=== PATIENT | female | born 1985 | race Two or more races ===

== ENCOUNTER 2016-02-07 09:02 | Emergency (ER) | payer OTHER ==
[2016-02-07 09:16] VITALS: BP 135/62; PULSE 59; RESP 18; TEMP 98; O2SAT 97
--- NOTE | 2016-02-07 09:24 | UCPHY ---
H & P Patient Type: New Chief Complaint Nursing Narrative: c/o UTI S/S since last night with LLQ tenderness- denies trauma HPI/ROS: CHIEF COMPLAINT: Dysuria HISTORY OF PRESENT ILLNESS: this is a healthy 30-year-old female with dysuria, urgency, and frequency that began last night and has persisted into the morning. She has some mild mid line lower abdominal pain. No vaginal discharge. No history of STD. Her last menstrual period was normal in began on January 23. She has not had fever, low-back pain, vomiting, or diarrhea. REVIEW OF SYSTEMS: A ten point review of systems was performed and is negative with the exception of the items mentioned in the HPI. Source: Patient Exam Limitations: No limitations - Personal History LMP (Females 10-55): 8-14 Days Ago Current Tetanus Diphtheria and Acellular Pertussis (TDAP): Yes - Medical/Surgical History Other PMH: . TA. Migraine headaches - Family History Significant Family History: No pertinent family hx - Social History Smoking Status: Never smoked Alcohol Use: Occasionally Additional Social History: She is . 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 - Physical Exam Exam: General Appearance: Alert. Vital signs reviewed. Eyes: Pupils equal and round, no conjunctival injection, no discharge. Anicteric. Neck: No lymphadenopathy. Respiratory: Lungs are clear to auscultation; no wheezes, rales, or rhonchi. Cardiovascular: Regular rate and rhythm; no murmur, rub, or gallop. Gastrointestinal: Abdomen is soft and mildly tender in the suprapubic region without guarding, no masses or organomegaly, bowel sounds normal. Skin: Warm and dry, no rashes on exposed skin, normal color. Back: No CVAT. Extremities: No lower extremity edema, no calf tenderness or swelling. Neurological: Alert and oriented. Moving all four extremities easily and equally. Psychiatric: Normal affect. Constitutional: Initial Vital Signs Temperature (C) 36.6 C 02/07/16 09:13 Heart Rate 59 L 02/07/16 09:13 Respiratory Rate 18 02/07/16 09:13 Blood Pressure 135/62 H 02/07/16 09:13 O2 Sat (%) 97 02/07/16 09:13 O2 Delivery Mode Room Air Allergies/Adverse Reactions: No Known Allergies Allergy (Unverified 02/07/16 09:12) Home Medications: Medication Instructions Recorded Cephalexin [Keflex] 500 mg PO BID #10 cap 02/07/16 Phenazopyridine HCl [Pyridium] 200 mg PO TID #5 tab 02/07/16 Medical Decision Making ED Course/Re-evaluation: 30-year-old female with signs and symptoms of urinary tract infection. UA is positive for UTI. Urine test is negative. She was given a dose of Pyridium in the urgent care clinic. She will be started on Keflex. Differential Diagnosis: I considered a differential diagnosis that includes but is not limited to urinary tract infection, pyelonephritis, STD, and appendicitis. - Data Points Medications Given: Discontinued Medications Phenazopyridine HCl (Pyridium) 200 mg PO EDNOW ONE Stop: 02/07/16 09:31 Last Admin: 02/07/16 10:02 Dose: 200 mg Departure - Departure Disposition: Home, Routine, Self-Care Clinical Impression: Urinary tract infection Qualifiers: Urinary tract infection type: acute cystitis Hematuria presence: without hematuria Qualifier Code: (N30.00) Acute cystitis without hematuria Instructions: Urinary Tract Infection in Women (ED) Additional Instructions: Take antibiotics as prescribed. Use the pyridium for burning with urination as needed. I am giving a referral to a primary care physician, to use if needed. Referrals: Ijeoma Castellon DO [Doctor of Osteopathy] - As per Instructions Prescriptions: Cephalexin [Keflex] 500 mg PO BID #10 cap Phenazopyridine HCl [Pyridium] 200 mg PO TID #5 tab - PQRS PQRS Measurement: Does not apply.
[2016-02-07 09:25] LABS: COLOR YELLOW; LEUKOCYTE ESTERASE,URINE TRACE (NEGATIVE); NITRITE,URINE POSITIVE (NEGATIVE); PH,URINE 7.5 (5.0-7.5)
[2016-02-07] MEDS ORDERED: PHENAZOPYRIDINE HCL 200 MG TAB PO ONE (09:30)
[2016-02-07 09:40] LABS: RBC,URINE 0-1 /hpf (0-3); WBC,URINE 15-25 /hpf (0-3)
[2016-02-07 09:41] LABS: BACTERIA 3+ /hpf (NONE SEEN)
== END 2016-02-07 10:03 | disposition home or self-care (01) ==
LOC: CED 09:02
DX: N30.00 Acute cystitis without hematuria (principal)
CPT/HCPCS: 81003-PO; 81015-PO; 81025-PO; 99204-PO; G0463-PO